=== PATIENT | female | born 1970 | race Caucasian/White ===

== ENCOUNTER 2022-08-01 09:10 | Emergency (ER) | payer OTHER, SELFPAY ==
[2022-08-01 09:25] VITALS: BP 155/97; PULSE 83; RESP 20; TEMP 36.8; O2SAT 97; BMI 27.3
[2022-08-01 10:35] LABS: Strep A Nucleic Acid Negative (Negative)
[2022-08-01 10:36] LABS: Influenza A PCR NEGATIVE (Negative); Influenza B PCR NEGATIVE (Negative); Resp Syncy Virus RNA Qual PCR NEGATIVE (Negative); SARS COV2 PCR INHOUSE POSITIVE (Negative)
--- NOTE | 2022-08-01 10:46 | ED.URI ---
HPI - URI/Sore Throat General Chief Complaint: Upper Respiratory Symptoms Stated Complaint: sore throat, runny nose Time Seen by Provider: 08/01/22 09:36 Source: patient Mode of arrival: ambulatory Limitations: no limitations History of Present Illness HPI Narrative: 52-year-old female presenting to the ER with complaints of generalized fatigue/ malaise, sore throat, runny nose and a nonproductive cough since yesterday worse today. 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 Denies recent travel or sick contacts that she is aware of. She denies any other symptoms complaints or concerns at this time. MD elicited complaint: cough, sore throat, rhinorrhea and nasal congestion Onset (ago): day(s) (2) Consistency: constant Severity: mild Description of mucous: clear, watery and yellow Able to tolerate fluids by mouth: Yes Exacerbating factors: swallowing Relieving factors: nothing Context: other ( Works in healthcare) Associated symptoms: chills, myalgias, rhinorrhea, nasal congestion, sore throat and cough Treatments prior to arrival: none Related Data Previous Rx's Medication Instructions Recorded nirmatrelvir 300 mg (150 mg See Rx Instructions PO .COMPLEX 08/01/22 x2)-ritonavir 100 mg tablet,dose #15 ea pack(EUA) (Paxlovid) Allergies Allergy/AdvReac Type Severity Reaction Status Date / Time No Known Allergies Allergy Unverified 04/27/20 19:25 [No Known Allergies*] Review of Systems Review of Systems: Constitutional : No Weight loss, No Fever, + Chills, No Night Sweats, + Fatigue, + Malaise ENT/Mouth : No Hearing loss, No Ear Pain, + Nasal Congestion, No Sinus Pain, No Hoarseness, + sore throat, + Rhinorrhea, No Swallowing Difficulty Eyes: No Eye Pain, No Swelling, No Redness, No Foreign Body, No Discharge, No Vision Changes Cardiovascular : No Chest Pain, No SOB, No Dyspnea on Exertion, No Orthopnea, No Edema, No Palpitations Respiratory : + Cough, No Sputum, No Wheezing, No Smoke Exposure, No Dyspnea Gastrointestinal : No Nausea, No Vomiting, No Diarrhea, No Constipation, No abdominal Pain, No Hematochezia, No Melena Genitourinary : no irregular bleeding, No Dysuria, No Urinary Frequency, No Hematuria, No Urinary Incontinence, No Urgency, No Flank Pain, No Urinary Flow Changes, No Hesitancy Musculoskeletal : No joint pain, + Myalgias, No Joint Swelling Skin : No Skin Lesions, No rash Neuro : No Weakness, No Numbness, No Paresthesias, No Loss of Consciousness, No Dizziness, No Headache Psych : No Anxiety/Panic, No Depression, No SI/HI/AH/VH, No Social Issues, Heme/Lymph: No Bruising, No Bleeding,No Lymphadenopathy Endocrine : No Polyuria, No Polydipsia, No Temperature Intolerance Yes all other systems are reviewed and are negative [facility] Past Medical History Attestation statement: The following information was validated with the patient. Source: old records reviewed and nursing notes reviewed Social History Social History Advance Directives: No Physical Exam Vital Signs: Vital Signs: Last Vital Signs Temp 98.3 F 08/01/22 09:25 Pulse 83 08/01/22 09:25 Resp 20 08/01/22 09:25 BP 155/97 H 08/01/22 09:25 Pulse Ox 97 08/01/22 09:25 O2 Del Method 08/01/22 09:25 BMI result Body Mass Index 27.3 Vital signs reviewed. Blood pressure normal. Pulse normal. Respiration normal. Oxygen normal. Temperature normal. Appearance: Alert. Oriented X3. No acute distress. Head: Normal external exam. Normocephalic. Atraumatic. Eyes: PERRLA. EOMI. Conjunctiva and sclera normal. Eyelids normal. ENT: EAC normal. TM's Normal. Pharynx normal. Uvula midline. Moist mucous membranes. No lesions/ulcerations or masses noted on the tongue. Normal voice. No trismus noted. No drooling noted. No muffled voice noted. Neck: Normal inspection. Neck supple. FROM. No adenopathy. Thyroid Normal. No meningeal signs. CVS: Normal heart rate and rhythm. Heart sound normal. Pulses normal throughout. No murmurs/rales/gallops. Respiratory: No respiratory distress. Painless inspiration. Breath sounds normal. No wheezes/rales/rhonchi noted. Chest nontender. No accessory muscle usage noted or decreased air movement noted. Abdomen: Soft and nontender. Back: Full range of motion noted. Nontender. Skin: Skin warm and dry. Normal skin color. Normal skin turgor. No rashes/lesions/lacerations noted. Extremities: Extremities exhibit normal range of motion and nontender. Neuro: Oriented X 3. No motor deficit. No sensory deficit. Reflexes normal. Normal steady gait. No focal neuro deficits noted. CN's II-XII intact bilaterally? Vascular: + radial pulses. Normal cap refill. No cyanosis noted to upper extremity nails Course Course Course Narrative: Patient + for covid. no additional labs imaging indicated. Will DC home with Paxlovid and gave her fact sheet. Instructed her to return if any new or worsening symptoms follow up with primary care provider and to self isolate per CDC guidelines. Patient understands agrees with this plan. Medical Decision Making Lab Data Labs: Lab Results 08/01/22 08/01/22 Range/Units 09:39 09:53 Influenza Type A (PCR) NEGATIVE (Negative) Influenza Type B (PCR) NEGATIVE (Negative) RSV RNA Qual (PCR) NEGATIVE (Negative) SARS-CoV-2 RNA (RT-PCR) POSITIVE A (Negative) S. pyogenes GrpA LISA Negative (Negative) Discharge Plan Discharge Clinical Impression: COVID-19 Patient Disposition: Home, Self-Care Instructions: COVID-19 (Coronavirus Disease 2019) (ED) Prescriptions: New Paxlovid (EUA) 300 mg (150 mg x 2)-100 mg tablets,dose pack See Rx Instructions PO .COMPLEX Qty: 15 0RF Rx Instructions: take TWO 150 mg tablets of nirmatrelvir with ONE 100 mg tablet of ritonavir twice daily for 5 days. Dip 15 pills Referrals: Physician,None [Primary Care Provider] - 5 days ( your PCP as needed) Stand Alone Forms: Work/School Release
== END 2022-08-01 11:00 | disposition home or self-care (01) ==
PROVIDERS: Physician Assistant Medical; Emergency Provider Emergency Medicine Emergency Medical Services
DX: U07.1 COVID-19 (principal)
CPT/HCPCS: 0241U; 36415; 87651; 99282; 99283

== ENCOUNTER 2022-11-25 12:07 | Emergency (ER) | payer OTHER, SELFPAY ==
[2022-11-25 12:16] VITALS: BP 130/85; PULSE 77; RESP 18; TEMP 36.8; O2SAT 99; BMI 26.4
--- NOTE | 2022-11-25 12:18 | ED.ABDPAIN ---
HPI - Abdominal Pain General Chief Complaint: Abdominal Pain <CHERIE Pelaez - Last Filed: 11/25/22 12:19> Stated Complaint: Abd pain <CHERIE Pelaez - Last Filed: 11/25/22 12:19> Time Seen by Provider: 11/25/22 19:38 <CHERIE Pelaez - Last Filed: 11/25/22 12:19> Source: patient <Jacoby Zhong MD - Last Filed: 11/25/22 20:03> Mode of arrival: ambulatory <Jacoby Zhong MD - Last Filed: 11/25/22 20:03> Limitations: no limitations <Jacoby Zhong MD - Last Filed: 11/25/22 20:03> History of Present Illness HPI narrative: 52-year-old female presents with 1 day of epigastric abdominal pain. The pain started approximately 1:00 a.m. this morning. The pain was described as sharp and stabbing. The pain does not radiate. Patient describes the pain as mild to moderate nature. There is no clear relieving or exacerbating features. Patient denied any nausea vomiting. She did have 1 loose bowel movement that was nonbloody. She has had no fevers or chills. She denies any sick contacts. <Jacoby Zhong MD - Last Filed: 11/25/22 20:03> Related Data Allergies/Adverse Reactions: Allergies Allergy/AdvReac Type Severity Reaction Status Date / Time No Known Allergies Allergy Unverified 04/27/20 19:25 [No Known Allergies*] <CHERIE Pelaez - Last Filed: 11/25/22 12:19> [facility] Social History Social History: Social History Advance Directives: No Advance Directives Information Provided: Yes <CHERIE Pelaez - Last Filed: 11/25/22 12:19> Physical Exam ED Vital Signs: Vital Signs - 24 hr 11/25/22 12:16 Temperature 98.3 F Pulse Rate 77 Respiratory Rate 18 Blood Pressure 130/85 Pulse Oximetry 99 Oxygen Delivery Method Room Air BMI result Body Mass Index 26.4 <CHERIE Pelaez - Last Filed: 11/25/22 12:19> Vital Signs - 24 hr 11/25/22 12:16 Temperature 98.3 F Pulse Rate 77 Respiratory Rate 18 Blood Pressure 130/85 Pulse Oximetry 99 Oxygen Delivery Method Room Air BMI result Body Mass Index 26.4 <Jacoby Zhong MD - Last Filed: 11/25/22 20:03> GEN: Well developed, no acute distress, alert, oriented HEENT: Normocephalic, atraumatic, normal external ears, nose appears normal, no oropharyngeal edema or exudates Eyes: Normal to appearance Neck: Supple, no lymphadenopathy Respiratory: Talks in complete sentences, no respiratory distress, clear to auscultation bilaterally Cardiovascular: Regular rate and rhythm, no murmurs rubs or gallops Abdomen: Soft, nontender, nondistended, no guarding, no rebound, negative McBurney's point tenderness, no Serna's sign Back: No CVA tenderness Extremities: No clubbing cyanosis or edema Neurologic: No focal neurologic deficits, cranial nerves 2-12 intact, strength is 5/5 bilaterally, gait normal Skin: No rash <Jacoby Zhong MD - Last Filed: 11/25/22 20:03> Course Course Course Narrative: RME - 52yo female presenting for epigastric pain that began yesterday after eating. Patient stated the pain has resolved but she continues having loose stools. No known sick contacts. Plan: labs <CHERIE Pelaez - Last Filed: 11/25/22 12:19> Reevaluation(s) Reevaluation #1: Patient's workup is complete. She has no evidence of pancreatitis or acute hepatitis. Symptoms could be most consistent with GERD, gastritis or gastroenteritis. She has no evidence of acute cholecystitis or appendicitis. Patient was instructed to return for any worsening or concerning symptoms. We also talked about dietary changes <Jacoby Zhong MD - Last Filed: 11/25/22 20:03> Time: 20:01 <Jacoby Zhong MD - Last Filed: 11/25/22 20:03> Medical Decision Making Medical Decision Making MDM Narrative: 52-year-old female presents with abdominal pain. The pain is in the epigastric area. She had no tenderness, rebound or guarding. She had a negative Serna sign and negative McBurney's point tenderness. Symptoms could be most consistent with acute gastroenteritis, gastritis, GERD. Doubt biliary colic, renal colic, perforated viscus she. There were no red flag symptoms to suggest rupture AAA, aortic dissection, perforated viscus. Patient will have routine laboratory analysis and re-evaluation. <Jacoby Zhong MD - Last Filed: 11/25/22 20:03> Differential Diagnosis Differential Diagnoses: The differential diagnosis associated with the presentation includes (Gastritis, reflux, pancreatitis, biliary colic, IBD, IBS, bacterial overgrowth, colitis, diverticulitis, ulcer) <Jacoby Zhong MD - Last Filed: 11/25/22 20:03> Lab Data MDM Lab Attestation statement: I reviewed the patient's lab results. <Jacoby Zhong MD - Last Filed: 11/25/22 20:03> Result Diagrams: 11/25/22 12:30 11/25/22 12:30 <CHERIE Pelaez - Last Filed: 11/25/22 12:19> Labs: Lab Results 11/25/22 11/25/22 Range/Units 12:30 12:30 WBC 9.9 (4.8-10.8) X10*3/uL RBC 4.55 (4.20-5.50) X10*6/uL Hgb 13.5 (12.0-16.0) g/dl Hct 41.9 (37.0-47.0) % MCV 92.1 (80.0-98.0) fL MCH 29.7 (27.0-33.0) pg MCHC 32.2 (31.0-35.0) g/dl RDW 12.1 (11.0-16.0) % Plt Count 300 (160-400) X10*3/uL MPV 9.6 (9.4-12.3) fL Immature Gran % (Auto) 0.2 (0.0-0.4) % Neut % (Auto) 62.5 (45-73) % Lymph % (Auto) 31.7 (20-40) % Baker % (Auto) 5.3 (2-11) % Eos % (Auto) 0.0 (0-4) % Baso % (Auto) 0.3 (0-2) % Lymph # (Auto) 3.1 (1.2-4.9) X10*3/uL Baker # (Auto) 0.5 (0.1-1.2) X10*3/uL Eos # (Auto) 0.0 (0.0-0.4) X10*3/uL Baso # (Auto) 0.0 (0.0-0.2) X10*3/uL Abs Immat Gran (auto) 0.02 (0.00-0.03) X10*3/uL Absolute Neuts (auto) 6.2 (2.0-8.3) x10*3/uL Absolute Nucleated RBC 0.000 (0.0-0.012) X10*3/uL Nucleated RBC % (auto) 0.0 (0.0-0.2) /100WBC Sodium 142 (135-145) mmol/L Potassium 4.2 (3.3-5.1) mmol/L Chloride 109 H (96-108) mmol/L Carbon Dioxide 25 (22-29) mmol/L Anion Gap 12 (12-20) BUN 16 (9-16) mg/dL Creatinine 0.81 (0.5-1.4) mg/dL Estim Creat Clear Calc 69.4 Estimated GFR > 60 Random Glucose 90 (60-115) mg/dL Calcium 9.7 (8.4-10.2) mg/dL Magnesium 1.8 (1.6-2.6) mg/dL Total Bilirubin 0.3 (0.0-1.0) mg/dL Direct Bilirubin 0.1 (0.0-0.5) mg/dL AST 21 (5-31) U/L ALT 25 (0-31) U/L Alkaline Phosphatase 124 H (39-117) U/L Total Protein 7.4 (6.5-8.0) g/dL Albumin 4.1 (3.5-5.0) g/dL Lipase 14 (8-78) U/L <CHERIE Pelaez - Last Filed: 11/25/22 12:19> Lab Results 11/25/22 11/25/22 Range/Units 12:30 12:30 WBC 9.9 (4.8-10.8) X10*3/uL RBC 4.55 (4.20-5.50) X10*6/uL Hgb 13.5 (12.0-16.0) g/dl Hct 41.9 (37.0-47.0) % MCV 92.1 (80.0-98.0) fL MCH 29.7 (27.0-33.0) pg MCHC 32.2 (31.0-35.0) g/dl RDW 12.1 (11.0-16.0) % Plt Count 300 (160-400) X10*3/uL MPV 9.6 (9.4-12.3) fL Immature Gran % (Auto) 0.2 (0.0-0.4) % Neut % (Auto) 62.5 (45-73) % Lymph % (Auto) 31.7 (20-40) % Baker % (Auto) 5.3 (2-11) % Eos % (Auto) 0.0 (0-4) % Baso % (Auto) 0.3 (0-2) % Lymph # (Auto) 3.1 (1.2-4.9) X10*3/uL Baker # (Auto) 0.5 (0.1-1.2) X10*3/uL Eos # (Auto) 0.0 (0.0-0.4) X10*3/uL Baso # (Auto) 0.0 (0.0-0.2) X10*3/uL Abs Immat Gran (auto) 0.02 (0.00-0.03) X10*3/uL Absolute Neuts (auto) 6.2 (2.0-8.3) x10*3/uL Absolute Nucleated RBC 0.000 (0.0-0.012) X10*3/uL Nucleated RBC % (auto) 0.0 (0.0-0.2) /100WBC Sodium 142 (135-145) mmol/L Potassium 4.2 (3.3-5.1) mmol/L Chloride 109 H (96-108) mmol/L Carbon Dioxide 25 (22-29) mmol/L Anion Gap 12 (12-20) BUN 16 (9-16) mg/dL Creatinine 0.81 (0.5-1.4) mg/dL Estim Creat Clear Calc 69.4 Estimated GFR > 60 Random Glucose 90 (60-115) mg/dL Calcium 9.7 (8.4-10.2) mg/dL Magnesium 1.8 (1.6-2.6) mg/dL Total Bilirubin 0.3 (0.0-1.0) mg/dL Direct Bilirubin 0.1 (0.0-0.5) mg/dL AST 21 (5-31) U/L ALT 25 (0-31) U/L Alkaline Phosphatase 124 H (39-117) U/L Total Protein 7.4 (6.5-8.0) g/dL Albumin 4.1 (3.5-5.0) g/dL Lipase 14 (8-78) U/L <Jacoby Zhong MD - Last Filed: 11/25/22 20:03> Tests considered The following testing was considered but not selected: Ultrasound, CT scan abdomen <Jacoby Zhong MD - Last Filed: 11/25/22 20:03> Prescription Management I considered prescription management with: Pain Medication <Jacoby Zhong MD - Last Filed: 11/25/22 20:03> Discharge Plan Discharge Clinical Impression: Abdominal pain, epigastric <CHERIE Pelaez - Last Filed: 11/25/22 12:19> Patient Disposition: Home, Self-Care <CHERIE Pelaez - Last Filed: 11/25/22 12:19> Instructions: Gastroesophageal Reflux Disease (DC), Abdominal Pain (ED) <CHERIE Pelaez - Last Filed: 11/25/22 12:19> Prescriptions: Discontinued Paxlovid (EUA) 300 mg (150 mg x 2)-100 mg tablets,dose pack See Rx Instructions PO .COMPLEX Qty: 15 0RF Rx Instructions: take TWO 150 mg tablets of nirmatrelvir with ONE 100 mg tablet of ritonavir twice daily for 5 days. Dip 15 pills <CHERIE Peleaz - Last Filed: 11/25/22 12:19> Referrals: [facility] [place] [facility] [Provider Group] <CHERIE Pelaez - Last Filed: 11/25/22 12:19> Stand Alone Forms: Work/School Release <CHERIE Pelaez Last Filed: 11/25/22 12:19>
[2022-11-25 12:36] LABS: MANUAL DIFF FLAG NO
[2022-11-25 12:37] LABS: Basophils Percent Auto 0.3 % (0-2); Hematocrit 41.9 % (37.0-47.0); Hemoglobin 13.5 g/dl (12.0-16.0); Imm Gran Abs Auto 0.02 X10*3/uL (0.00-0.03); Imm Gran Pct Auto 0.2 % (0.0-0.4); Lymphocytes Absolute Auto 3.1 X10*3/uL (1.2-4.9); Lymphocytes Percent Auto 31.7 % (20-40); Mean Corpuscular HGB Conc 32.2 g/dl (31.0-35.0); Mean Corpuscular Hemoglobin 29.7 pg (27.0-33.0); Mean Corpuscular Volume 92.1 fL (80.0-98.0); Mean Platelet Volume 9.6 fL (9.4-12.3); Monocytes Absolute Auto 0.5 X10*3/uL (0.1-1.2); Monocytes Percent Auto 5.3 % (2-11); Neutrophils Absolute Auto 6.2 x10*3/uL (2.0-8.3); Neutrophils Percent Auto 62.5 % (45-73); Platelet Count 300 X10*3/uL (160-400); Red Blood Count 4.55 X10*6/uL (4.20-5.50); Red Cell Distribution Width 12.1 % (11.0-16.0); White Blood Count 9.9 X10*3/uL (4.8-10.8)
[2022-11-25 12:53] LABS: Alanine Aminotransferase 25 U/L (0-31); Albumin Level 4.1 g/dL (3.5-5.0); Alkaline Phosphatase 124 U/L (39-117); Anion Gap 12 (12-20); Aspartate Amino Transferase 21 U/L (5-31); Bilirubin Direct 0.1 mg/dL (0.0-0.5); Bilirubin Total 0.3 mg/dL (0.0-1.0); Blood Urea Nitrogen 16 mg/dL (9-16); Calcium 9.7 mg/dL (8.4-10.2); Carbon Dioxide 25 mmol/L (22-29); Chloride 109 mmol/L (96-108); Creatinine Clr Calc Pharmacy 69.4; Estimated Glomerular Filt Rate > 60; Glucose Random 90 mg/dL (60-115); Magnesium 1.8 mg/dL (1.6-2.6); Potassium 4.2 mmol/L (3.3-5.1); Sodium 142 mmol/L (135-145); Total Protein 7.4 g/dL (6.5-8.0)
[2022-11-25 13:05] LABS: Lipase 14 U/L (8-78)
--- NOTE | 2022-11-25 19:49 | PC.NURSE ---
Patient in with abdominal pain. Patient sitting on stretcher and asking to just get the results of her tests because she has been waiting so long. Provider made aware of this and will go tell the patient the results of her tests.
[2022-11-25 20:04] VITALS: BP 162/93; PULSE 73; RESP 16; TEMP 36.3; O2SAT 95
== END 2022-11-25 20:08 | disposition home or self-care (01) ==
PROVIDERS: Physician Assistant; Emergency Provider Emergency Medicine
DX: R10.13 Epigastric pain (principal)
CPT/HCPCS: 36415; 80048; 80076; 83690; 83735; 85025; 99283; 99284